=== PATIENT | male | born 1985 | race African-American/Black ===

== ENCOUNTER 2016-12-29 21:58 | Emergency (ER) | payer OTHER ==
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
[~2016-12-29 21:58] MED LIST: ACYCLOVIR PO; BACTRIM DS TABL1 TAB PO; FLEXERIL PO; KEFLEX PO; KETOPROFEN PO; VICODIN 5/500 T1 TAB PO
== END 2016-12-30 01:06 | disposition home or self-care (01) ==
LOC: CED 21:58
DX: S33.5XXA Sprain of ligaments of lumbar spine, initial encounter (principal); S80.01XA Contusion of right knee, initial encounter; S20.212A Contusion of left front wall of thorax, initial encounter; V43.62XA Car passenger injured in collision with other type car in traffic accident, initial encounter; Y92.410 Unspecified street and highway as the place of occurrence of the external cause
CPT/HCPCS: 71020; 72100; 72131; 73562; 99284